=== PATIENT | male | born 1975 ===

== ENCOUNTER 2018-12-19 15:50 | Emergency (ER) | payer SELFPAY ==
--- NOTE | 2018-12-19 16:27 | Emergency Department Report ---
Blank Doc - Documentation Documentation: This is a 42-year-old male that presents with acute headache. Denies any hist ory of headaches. This initial assessment/diagnostic orders/clinical plan/treatment(s) is/are subject to change based on patient's health status, clinical progression and re- assessment by fellow clinical providers in the ED. Further treatment and workup at subsequent clinical providers discretion. Patient/guardians urged not to elope from the ED as their condition may be serious if not clinically assessed and managed. Initial orders include: 1- Patient sent to [facility] for further evaluation and treatment 2- CT head
--- NOTE | 2018-12-19 17:27 | Cat Scan Report ---
Nonenhanced CT scan of the brain: INDICATION: headache and dizziness. TECHNIQUE: Routine CT head without contrast. Sagittal and coronal reformatted images were obtained. A ll CT scans at this location are performed using CT dose reduction for ALARA by means of automated ex posure control. COMPARISON: None. FINDINGS: BRAIN / INTRACRANIAL CONTENTS: No acute hemorrhage, mass effect, midline shift, hydrocephalus, or acu te, large territorial infarct. No chronic infarct or focal atrophy. Normal brain volume and ventricul ar/sulcal size for age. No significant white matter abnormality. CRANIOCERVICAL JUNCTION: No significant abnormality. ORBITS: No significant abnormality of visualized orbits. SINUSES / MASTOIDS: No significant abnormality of the visualized paranasal sinuses or mastoid air diallo ls. ADDITIONAL FINDINGS: None. IMPRESSION: Normal nonenhanced CT scan of the brain. Signer Name: Alfa Baker MD Signed: 12/19/2018 5:23 PM Workstation Name: [id number]
[2018-12-19] MEDS ORDERED: DELTASONE PO ONE (19:28)
[2018-12-19] MEDS ORDERED: BENADRYL PO ONE (19:28)
[2018-12-19] MEDS ORDERED: REGLAN PO ONE (19:28)
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
--- NOTE | 2018-12-19 20:01 | XRay Report ---
CHEST 2 VIEWS INDICATION / CLINICAL INFORMATION: Dizziness. COMPARISON: None available. FINDINGS: SUPPORT DEVICES: None. HEART / MEDIASTINUM: The heart size and pulmonary vasculature are normal. The aorta is normal in [place] max. LUNGS / PLEURA: No significant pulmonary or pleural abnormality. No pneumothorax. ADDITIONAL FINDINGS: No significant additional findings. IMPRESSION: No acute findings. Signer Name: Antonio Lomeli MD Signed: 12/19/2018 7:56 PM Workstation Name: [id number]
== END 2018-12-19 20:14 | disposition home or self-care (01) ==
LOC: ED 15:50
DX: R42 Dizziness and giddiness (principal); R51 Headache
CPT/HCPCS: 70450; 71046; 99284; J7512